=== PATIENT | male | born 1975 | race African-American/Black ===

== ENCOUNTER 2017-11-01 08:03 | Emergency (ER) | payer MEDICAID ==
[~2017-11-01] VITALS: Ht 185.4 cm; Wt 122.5 kg
[~2017-11-01 08:03] MED LIST: ASPI81CH43; ENAL5TAB92; FAMO20TA58; METO25TA62; SPIR25TA89
[2017-11-01 08:11] VITALS: BP 139/82
[2017-11-01] MEDS ORDERED: LORazepam 2MG/ML-1ML VIAL IM ONE (09:00)
== END 2017-11-01 09:32 | disposition home or self-care (01) ==
LOC: EDBD 08:03 → ER 08:03
DX: F41.9 Anxiety disorder, unspecified (principal); K21.9 Gastro-esophageal reflux disease without esophagitis; I11.0 Hypertensive heart disease with heart failure; I50.9 Heart failure, unspecified; F17.210 Nicotine dependence, cigarettes, uncomplicated; Z88.0 Allergy status to penicillin; Z88.2 Allergy status to sulfonamides
CPT/HCPCS: 93005; 96372; 99284; J2060

== ENCOUNTER 2019-12-03 12:33 | Emergency (ER) | payer MEDICAID ==
[~2019-12-03] VITALS: Ht 182.9 cm; Wt 117.9 kg
[~2019-12-03 12:33] MED LIST changes: +ENAL5TAB10; -ENAL5TAB92; -METO25TA62; +METO25TA93; +SPIR25TA8; -SPIR25TA89
[2019-12-03] MEDS ORDERED: ACETAMINOPHEN 650 mg PER 20 mL UD PO ONE (13:00)
[2019-12-03 13:14] LABS: Basophils # (auto) 0.2 10 ^3/uL (0-0.2); Eosinophils # (auto) 0 10 ^3/uL (0-0.8); Eosinophils % (auto) 0.2 % (0.0-7.0); Hematocrit 42.1 % (41.0-53.0); Hemoglobin 14.6 g/dL (13.5-17.5); Lymphocytes # (auto) 1.3 10 ^3/uL (0.4-5.4); Mean Corpuscular Hemoglobin 29.4 pg (28.0-32.0); Mean Corpuscular Hgb Conc. 34.6 g/dL (32.0-36.0); Mean Corpuscular Volume 85.1 fL (80.0-100.0); Monocytes # (auto) 1.4 10 ^3/uL (0-1.3); Monocytes % (auto) 8.1 % (0.0-12.0); Neutrophils % (auto) 82.7 % (37.0-80.0); Nucleated Red Blood Cells % 0.1 %; Platelet Count (auto) 226 10^3/uL (140-450); Red Blood Cells 4.95 10^6/uL (4.5-5.90); Red Cell Distribution Width 14.6 % (11.8-14.3); White Blood Cell 16.9 10^3/uL (4.4-10.8)
[2019-12-03 13:35] LABS: Albumin 3.3 g/dL (3.4-5.0); Calcium 9.5 mg/dL (8.5-10.1); Potassium 3.1 mmol/L (3.5-5.1)
[2019-12-03 13:37] LABS: BUN/Creatinine Ratio 11.6; Bilirubin, Total 0.7 mg/dL (0.2-1.0); Total Protein 8.9 g/dL (6.4-8.2)
[2019-12-03] MEDS ORDERED: cefTRIAXone 1GM/50ML D5W 50 ML IV ONE (13:45)
[2019-12-03] MEDS ORDERED: AZITHROMYCIN 500MG/ 250ML 250 ML IV ONE (13:45)
[2019-12-03] MEDS ORDERED: KETOROLAC TROMETH 15 mg/ml 1ML VL IV ONE (13:45)
[2019-12-03] MEDS ORDERED: KETOROLAC TROMETH 30 MG/ML 1ML VIAL IV ONE (14:00)
[2019-12-03 16:35] VITALS: BP 106/68
== END 2019-12-03 16:45 | disposition short-term general hospital (02) ==
LOC: ER 12:33
DX: J36 Peritonsillar abscess (principal); F31.9 Bipolar disorder, unspecified; I11.0 Hypertensive heart disease with heart failure; I50.9 Heart failure, unspecified; K21.9 Gastro-esophageal reflux disease without esophagitis
CPT/HCPCS: 36415; 70490; 71046; 80053; 85025; 87070; 87804; 87880; 96365; 96366; 96368; 96375; 99285; J0456; J0696; J1885